=== PATIENT | male | born 1965 | race Caucasian/White ===

== ENCOUNTER 2021-01-08 13:22 | Emergency (ER) | payer OTHER ==
[~2021-01-08] VITALS: Ht 182.9 cm; Wt 102.1 kg
[2021-01-08 13:39] VITALS: BP 141/95
--- NOTE | 2021-01-08 13:40 | NUR ---
To ER bed 11, c/o L knee redness, warm to touch, noticed pus x 3 days 10/10 pain scale, aaox3, breathing even and non labored
--- NOTE | 2021-01-08 14:25 | NUR ---
DR BYERS AT BEDSIDE
[2021-01-08] MEDS ORDERED: CLIN300C12 PO (14:29)
== END 2021-01-08 14:50 | disposition home or self-care (01) ==
LOC: ER 13:33
DX: L72.8 Other follicular cysts of the skin and subcutaneous tissue (principal); L08.89 Other specified local infections of the skin and subcutaneous tissue; Z79.899 Other long term (current) drug therapy